=== PATIENT | female | born 1970 | race Caucasian/White ===

== ENCOUNTER 2024-07-05 14:23 | Emergency (ER) | payer MEDICAID, OTHER ==
[~2024-07-05] VITALS: Ht 134.6 cm; Wt 56.8 kg
[~2024-07-05 14:23] MED LIST: CALC500T37 PO
[2024-07-05 14:27] VITALS: TEMP 98.6
[2024-07-05 17:31] VITALS: BP 145/60; PULSE 70; RESP 18; O2SAT 97
== END 2024-07-05 17:33 | disposition home or self-care (01) ==
LOC: EMS 14:23
DX: M79.672 Pain in left foot (principal)
CPT/HCPCS: 93971; 99284; 73610-TC; Z7502